=== PATIENT | male | born 1985 | race Caucasian/White ===

== ENCOUNTER 2017-11-03 10:45 | Emergency (ER) | payer SELFPAY ==
[2017-11-03 11:11] VITALS: TEMP 97.4
[2017-11-03] MEDS ORDERED: Sodium Chloride 0.9% 1,000 ML IV STA ×2 (11:52→13:30)
[2017-11-03] MEDS ORDERED: Sodium Chloride 0.9% 1,000 ML ONE (12:15)
[2017-11-03 12:41] LABS: BASO # 0.1 K/uL (0.0-0.2); EOS # 0.3 K/uL (0.0-0.7); HEMOGLOBIN 17.1 g/dL (12.0-18.0); MONO # 0.9 K/uL (0.0-0.8); WHITE BLOOD COUNT 10.1 K/uL (4.8-10.8)
[2017-11-03 12:44] LABS: SQUAMOUS EPITHIAL 1 /hpf (0-5); URINE BILIRUBIN NEGATIVE (NEGATIVE); URINE BLOOD NEGATIVE (NEGATIVE); URINE CLARITY Clear (Clear); URINE COLOR Yellow (YELLOW); URINE GLUCOSE (UA) NORMAL (Normal); URINE LEUKOCYTE ESTERASE NEG Leu/uL (Negative); URINE PROTEIN NEGATIVE (NEGATIVE)
[2017-11-03 12:55] LABS: INR 1.2; PARTIAL THROMBOPLASTIN TIME 35 SECONDS (21-34); PROTHROMBIN TIME 12.7 SECONDS (9.7-12.2)
[2017-11-03 12:56] LABS: ALB/GLOB RATIO 1.4 (1.0-2.1); ALBUMIN 4.8 g/dL (3.5-5.0); ALT/SGPT 41 U/L (21-72); AST/SGOT 31 U/L (17-59); BLOOD UREA NITROGEN 21 mg/dL (9-20); CALCIUM 9.6 mg/dl (8.6-10.4); GFR NON-AFRICAN AMERICAN > 60
[2017-11-03 12:59] LABS: BASO % 0.6 % (0.0-2.0); EOS % 2.5 % (0.0-4.0); LYMPH # 1.9 K/uL (1.0-4.3); LYMPH % 19.2 % (20.0-40.0); MEAN CELL VOLUME 81.3 fL (80.0-94.0); MEAN CORPUSCULAR HEMOGLOBIN 28.6 pg (27.0-31.0); MEAN CORPUSCULAR HGB CONC 35.1 g/dL (33.0-37.0); MEAN PLATELET VOLUME 9.7 fL (7.2-11.7); MONO % 8.8 % (0.0-10.0); NEUT % 68.9 % (50.0-75.0); NRBC % 2.6 % (0.0-2.0); RBC 5.99 Mil/uL (4.40-5.90); RED CELL DISTRIBUTION WIDTH 13.3 % (11.5-14.5)
[2017-11-03 13:00] LABS: BARBITURATES, UR NEGATIVE (NEGATIVE); BENZODIAZEPINES, UR NEGATIVE (NEGATIVE); OPIATES, UR NEGATIVE (NEGATIVE); PHENCYCLIDINE, UR NEGATIVE (NEGATIVE)
--- NOTE | 2017-11-03 13:02 | C.PDOC ---
History Of Present Illness 32 y/o male presents to the ED with complaints of palpitations and SOB that began this morning. Admits he has been using cocaine for the last 2 days and feels anxious. Otherwise he denies any chest pain, dizziness, visual changes, nausea, vomiting, abdominal pain, or other complaints. Time Seen by Provider: 11/03/17 11:15 Chief Complaint (Nursing): Anxiety History Per: Patient History/Exam Limitations: no limitations Onset/Duration Of Symptoms: Hrs Current Symptoms Are (Timing): Still Present Modifying Factor(s): Cocaine Past Medical History Reviewed: Historical Data, Nursing Documentation, Vital Signs Vital Signs: Last Vital Signs Temp 97.4 F L 11/03/17 11:04 Pulse 97 H 11/03/17 13:38 Resp 14 11/03/17 13:38 BP 133/92 H 11/03/17 13:38 Pulse Ox 99 11/03/17 15:30 - Medical History PMH: No Chronic Diseases Family History: States: No Known Family Hx - Social History Hx Alcohol Use: Yes Hx Substance Use: Yes (reports 1 gram daily for past 2 days) Review Of Systems Except As Marked, All Systems Reviewed And Found Negative. Constitutional: Negative for: Fever Eyes: Negative for: Vision Change Cardiovascular: Positive for: Palpitations. Negative for: Chest Pain Respiratory: Positive for: Shortness of Breath Gastrointestinal: Negative for: Nausea, Vomiting, Abdominal Pain Neurological: Negative for: Weakness, Numbness, Headache, Dizziness Psych: Positive for: Anxiety, Other (Cocaine abuse). Negative for: Suicidal ideation Physical Exam - Physical Exam Appears: Non-toxic, No Acute Distress Skin: Normal Color, Warm, Dry Head: Atraumatic, Normacephalic Eye(s): bilateral: Normal Inspection, PERRL, EOMI Neck: Normal ROM, Supple Chest: Symmetrical Cardiovascular: Rhythm Regular, No Murmur Respiratory: Normal Breath Sounds, No Rales, No Rhonchi, No Wheezing Gastrointestinal/Abdominal: Soft, No Tenderness, No Distention Extremity: Bilateral: Atraumatic, Normal Color And Temperature, Normal ROM Pulses: Left Radial: Normal, Right Radial: Normal Neurological/Psych: Oriented x3, Normal Speech, Normal Cranial Nerves ED Course And Treatment - Laboratory Results Result Diagrams: 11/03/17 12:34 11/03/17 12:34 ECG: Interpreted By Me, Viewed By Me ECG Rhythm: Sinus Rhythm ECG Interpretation: No Acute Changes Interpretation Of ECG: NSR at 89 bpm, with incomplete R BBB, and T wave inversions at lead III Rate From EC O2 Sat by Pulse Oximetry: 99 (RA) Pulse Ox Interpretation: Normal - Other Rad CXR X-Ray: Read By Radiologist Interpretation: Accession No. : [id number]. Patient Name / ID : MORIS ANGELO / [id number]. Exam Date : 11/03/2017 12:58:57 ( Approved ). Study Comment : Sex / Age : M / 32Y. Creator : Efren Funk MD. Dictator : Efren Funk MD. Power And Recovery Shift Engineer : Director [employer] : Efren Funk MD. Approver2 : Report Date : 11/03/2017 13:13:22. My Comment : . Date of service: 11/03/2017. PROCEDURE: CHEST RADIOGRAPH, 1 VIEW. HISTORY: palpitation, sob. COMPARISON: None available. FINDINGS: LUNGS: Clear. PLEURA: No pneumothorax or pleural fluid seen. CARDIOVASCULAR: Normal. OSSEOUS STRUCTURES: No significant abnormalities. VISUALIZED UPPER ABDOMEN: Normal. OTHER FINDINGS: None. IMPRESSION: No active disease. Progress Note: EKG done, findings reviewed with patient. Blood work and urine sent. Labs including cardiac enzymes ordered. Chest x-ray ordered and shows no acute disease. Patient treated with 2 L of IV fluids, and reports improvement in symptoms. Patient doesn't want to wait for the second set of cardiac enzymes. He sts he feel normal and wants to be d/c home. Patient was explained the risks of leaving AMA. Patient verbalized understanding, signed AMA form and left ED. Disposition - Disposition Disposition: AGAINST MEDICAL ADVICE Disposition Time: 15:29 Condition: STABLE Additional Instructions: Follow up with your PMD within 1-2 days. Return to ED if feel worse. Forms: [employer] (Amharic) - Clinical Impression Clinical Impression: Palpitation, SOB (shortness of breath), Cocaine abuse with unspecified cocaine- induced disorder - PA / FUNDRAISING MANAGER / Resident Statement MD/DO has reviewed & agrees with the documentation as recorded. - Scribe Statement The provider has reviewed the documentation as recorded by the Scribe (Sugey Baird) All medical record entries made by the Scribe were at my direction and personally dictated by me. I have reviewed the chart and agree that the record accurately reflects my personal performance of the history, physical exam, medical decision making, and the department course for this patient. I have also personally directed, reviewed, and agree with the discharge instructions and disposition.
[2017-11-03 13:10] LABS: CK-MB 1.84 ng/mL (0.0-3.38)
--- NOTE | 2017-11-03 13:14 | RAD ---
Date of service: 11/03/2017 PROCEDURE: CHEST RADIOGRAPH, 1 VIEW HISTORY: palpitation, sob COMPARISON: None available FINDINGS: LUNGS: Clear. PLEURA: No pneumothorax or pleural fluid seen. CARDIOVASCULAR: Normal. OSSEOUS STRUCTURES: No significant abnormalities. VISUALIZED UPPER ABDOMEN: Normal. OTHER FINDINGS: None. IMPRESSION: No active disease.
[2017-11-03 13:17] LABS: D DIMER < 200 ng/mlDDU (0-243)
[2017-11-03 13:44] VITALS: BP 133/92; PULSE 97; RESP 14
[2017-11-03 14:13] VITALS: O2SAT 99
--- NOTE | 2017-11-07 22:22 | CARD ---
APPROVED REPORT Date of service: 11/03/2017 EKG Measurement Heart [id number] <Conclusion> Sinus rhythm with marked sinus arrhythmia with short [place] Otherwise normal ECG
--- NOTE | 2017-11-07 22:30 | CARD ---
APPROVED REPORT Date of service: 11/03/2017 EKG Measurement Heart [id number] <Conclusion> Normal sinus rhythm Normal ECG
== END 2017-11-03 15:37 | disposition left against medical advice (07) ==
LOC: C.ER 10:45
DX: R00.2 Palpitations (principal); R06.02 Shortness of breath; F14.19 Cocaine abuse with unspecified cocaine-induced disorder
CPT/HCPCS: 71045; 80053; 81001; 82550; 82553; 84484; 85025; 85378; 85610; 85730; 93005; 96360; 96361; 99285; G0480; J7030